=== PATIENT | female | born 1945 | race Two or more races ===

== ENCOUNTER 2018-07-11 12:38 | Emergency (ER) | payer OTHER ==
[~2018-07-11] VITALS: Ht 154.9 cm; Wt 66.7 kg
[~2018-07-11 12:38] MED LIST: EVISTA60 MG; SYNTHROID112 MCG
[2018-07-11] MEDS ORDERED: [UNRECOGNIZED DRUG - OTHER] (13:23)
== END 2018-07-11 17:47 | disposition home or self-care (01) ==
LOC: ER 12:38
DX: S92.511A Displaced fracture of proximal phalanx of right lesser toe(s), initial encounter for closed fracture (principal); M79.674 Pain in right toe(s); S90.12 Contusion of lesser toe without damage to nail; W22.8XXS Striking against or struck by other objects, sequela

== ENCOUNTER → 2018-12-14 | Outpatient (CLI) | payer OTHER ==
[~2018-12-14] MED LIST changes: +[UNRECOGNIZED DRUG - OTHER]
== END | disposition home or self-care (01) ==
LOC: TOM 10:15
DX: M54.5 Low back pain (principal); N60.12 Diffuse cystic mastopathy of left breast; N60.11 Diffuse cystic mastopathy of right breast; E66.3 Overweight; M89.8X8 Other specified disorders of bone, other site; R31.21 Asymptomatic microscopic hematuria; N39.3 Stress incontinence (female) (male); Z12.31 Encounter for screening mammogram for malignant neoplasm of breast; Z87.898 Personal history of other specified conditions

== ENCOUNTER → 2019-05-31 | Outpatient (CLI) | payer OTHER | END | disposition home or self-care (01) | LOC: RAD 13:04 → MRI 13:15 | DX: M54.16 Radiculopathy, lumbar region (principal); W19.XXXA Unspecified fall, initial encounter | CPT/HCPCS: 72148 ==

== ENCOUNTER 2020-10-27 08:23 | Outpatient (CLI) | payer OTHER | END 2020-10-27 08:36 | disposition home or self-care (01) | LOC: MAMO-SONO 08:23 | DX: Z12.31 Encounter for screening mammogram for malignant neoplasm of breast (principal); N60.21 Fibroadenosis of right breast; N60.22 Fibroadenosis of left breast ==

== ENCOUNTER 2023-03-18 09:06 | Outpatient (CLI) | payer OTHER | END 2023-03-18 09:07 | disposition home or self-care (01) | LOC: NUCLEAR 09:06 | PROVIDERS: ATTEND Internal Medicine | DX: G45.9 Transient cerebral ischemic attack, unspecified (principal); R55 Syncope and collapse ==

== ENCOUNTER 2023-05-23 15:36 | Outpatient (CLI) | payer OTHER | END 2023-05-23 15:42 | disposition home or self-care (01) | LOC: RAD 15:36 | PROVIDERS: ATTEND Obstetrics & Gynecology | DX: J18.9 Pneumonia, unspecified organism (principal) ==